=== PATIENT | female | born 1990 | race Caucasian/White ===

== ENCOUNTER 2020-07-31 10:40 | Day surgery (SDC) | payer OTHER ==
[2020-07-31] MEDS ORDERED: Decadron 4 MG INJ IV ONE (10:41)
[2020-07-31] MEDS ORDERED: LIDOCAINE HCL 2% 100 MG/5 ML IJ ONE (10:41)
[2020-07-31] MEDS ORDERED: DIPRIVAN 200 MG/20 ML IV ONE (11:35)
--- NOTE | 2020-07-31 12:35 | XRAY ---
Indication: Right C3-C4 MBB. Intraoperative fluoroscopy provided for 19 seconds. 3 digital spot images submitted for interpretation demonstrates posterior needle tips projecting over the expected right C2-C4 nerve roots. Correlate with intraoperative findings/report.
[2020-07-31] MEDS ORDERED: Lactated Ringers 1,000 ML IV ONE (15:28)
--- NOTE | 2020-08-02 22:38 | XRAY ---
19 seconds of fluoroscopy was used in surgery for a right C3-C4 MBB.
== END 2020-07-31 12:10 | disposition home or self-care (01) ==
LOC: SDC-PAIN 10:40
PROVIDERS: ATTEND Psychiatry & Neurology Pain Medicine
DX: M47.812 Spondylosis without myelopathy or radiculopathy, cervical region (principal); I10 Essential (primary) hypertension; Z79.899 Other long term (current) drug therapy
CPT/HCPCS: 64490; 64491; 72040; 77002; 84703; J1100; J2704

== ENCOUNTER 2020-09-25 12:00 | Day surgery (SDC) | payer OTHER ==
[2020-09-25] MEDS ORDERED: Decadron 4 MG INJ IV ONE (12:01)
[2020-09-25] MEDS ORDERED: BUPIVACAINE 0.5% VIAL IJ ONE (12:01)
[2020-09-25] MEDS ORDERED: DIPRIVAN 200 MG/20 ML IV ONE (14:54)
[2020-09-25] MEDS ORDERED: Lactated Ringers 1,000 ML IV ONE (17:32)
--- NOTE | 2020-09-26 08:01 | XRAY ---
16 seconds fluoroscopy time in surgery for right C2-C4 MBB.
== END 2020-09-25 15:17 | disposition home or self-care (01) ==
LOC: SDC-PAIN 12:00
PROVIDERS: ATTEND Psychiatry & Neurology Pain Medicine
DX: M47.812 Spondylosis without myelopathy or radiculopathy, cervical region (principal); I10 Essential (primary) hypertension; Z79.899 Other long term (current) drug therapy
CPT/HCPCS: 64490; 64491; 72020; 77002; 84703; J1100; J2704

== ENCOUNTER 2021-04-09 13:14 | Day surgery (SDC) | payer OTHER ==
[2021-04-09] MEDS ORDERED: Depo-Medrol 40 MG/ML IM ONE (13:15)
[2021-04-09] MEDS ORDERED: Sodium Chloride 0.9% 10 ML FLUSH Syringe IJ ONE (13:15)
[2021-04-09] MEDS ORDERED: Lactated Ringers 1,000 ML IV ONE (15:43)
[2021-04-09] MEDS ORDERED: DIPRIVAN 200 MG/20 ML IV ONE (15:48)
--- NOTE | 2021-04-09 16:40 | XRAY ---
Indication: Left L4-S1 transforaminal ELSIE. Intraoperative fluoroscopy provided for 20 seconds. 3 digital spot image submitted for interpretation demonstrates posterior needle tips projecting over the left L4 and L5 nerve roots. Small amount of contrast injected for needle tip placement. Correlate with intraoperative findings/report.
--- NOTE | 2021-04-09 16:42 | XRAY ---
20 seconds fluoroscopy time in surgery for left L4-S1 transforaminal ELSIE.
== END 2021-04-09 16:03 | disposition home or self-care (01) ==
LOC: SDC-PAIN 13:14
PROVIDERS: ATTEND Psychiatry & Neurology Pain Medicine
DX: M54.16 Radiculopathy, lumbar region (principal); I10 Essential (primary) hypertension; Z79.899 Other long term (current) drug therapy
CPT/HCPCS: 64483; 64484; 72100; 77003; 84703; J1030; J2704; Q9966